=== PATIENT | male | born 1995 | race Caucasian/White ===

== ENCOUNTER 2016-10-28 03:48 | Emergency (ER) | payer BC ==
--- NOTE | ~2016-10-28 | ER ---
PATIENT'S NAME: DO TEIXEIRA [facility] AGE: 21 Y [address] ROOM: [place] [address] LOCATION: ED ADMIT DATE: 10/28/2016 ER/Outpatient Report DISCHARGE DATE: 10/28/2016 FAMILY PHYSICIAN: Physician, Unknown ATTENDING PHYSICIAN: Hung Arboleda CHIEF COMPLAINT: Suicidal ideation and right hand pain. HISTORY OF PRESENT ILLNESS: The patient broke up with his girlfriend vandana pace. He was suicidal. Somehow, the police became involved. They found that he had punched a brick wall, had swelling in his hand, but he needs to go to senior living for some preexisting warrants as I understand it. He needs clearance of his hand before admission to senior living. They facilitate all his other evaluations at that time. The patient does state that he wants to and he has had some alcohol this evening. He denies any other acute issues at this time. PAST MEDICAL HISTORY: Documented on the record and reviewed by me. SOCIAL HISTORY: Documented on the record and reviewed by me. MEDICATIONS: Documented on the record and reviewed by me. ALLERGIES: DOCUMENTED ON THE RECORD AND REVIEWED BY ME. REVIEW OF SYSTEMS: All systems reviewed and negative except as noted in the HPI. PHYSICAL EXAMINATION: VITAL SIGNS: Blood pressure is 147/96, pulse 104, respiratory rate is 20, temperature 99, SpO2 is 95% on room air. GENERAL: Age-appropriate male, sitting upright on the exam table, emotionally upset, but no apparent pain or distress. NEUROLOGIC: Awake and alert. GCS appears to be 15. No focal deficits. No asymmetry on exam. HEENT: Normocephalic, atraumatic. Eyes are PERRL. Oropharynx is clear. NECK: Supple. Trachea is midline. CHEST: Heart is regular. Tachycardia. No murmurs. LUNGS: Clear to auscultation bilateral. No rhonchi, wheezes, or rales. ABDOMEN: Soft, nontender, and nondistended. No rebound or guarding. PATIENT'S NAME: DO TEIXEIRA [facility] AGE: 21 Y [address] ROOM: [place] [address] LOCATION: [facility] ADMIT DATE: 10/28/2016 ER/Outpatient Report DISCHARGE DATE: 10/28/2016 FAMILY PHYSICIAN: Physician, Unknown ATTENDING PHYSICIAN: Hung Arboleda BACK: Normal to inspection and palpation. EXTREMITIES: Notable for some swelling and tenderness at the right knuckles. The patient is able to make a 5/5 barrel handler strength. Extension is appropriate. Able to give thumbs up, cross fingers, and otherwise no tenderness to palpation at the wrist. Just swelling along the MCPs on digits 3, 4, and 5 most prominently. No pain with range of motion or palpation of the wrist or elbow. SKIN: Appears to be intact otherwise. LABORATORY DATA AND X-RAYS: Plain films of the right hand do not reveal any fractures per my review. Radiology review is pending. IMPRESSION: 1. Contusions of the right hand. 2. Suicidal ideation. 3. Alcohol intoxication. ED COURSE: The patient was seen and evaluated as above. He was brought in under the care of police custody. He will be taken to senior living. No fractures at this time. Recommend Tylenol and ice as needed. The patient will be cleared per protocol for admission to psychiatric unit pending clearing of legal matters. All questions were answered and the patient was discharged back to the custody of police to senior living. MD KECIA YBARRA/pal /[id number] d: 10/28/1616 t: 10/31/16 1243, OUTPATIENT REPORT
== END 2016-10-28 04:16 | disposition disaster alternative care site (69) ==
LOC: GMED 03:48
DX: S60.221A Contusion of right hand, initial encounter (principal); R45.851 Suicidal ideations; F10.129 Alcohol abuse with intoxication, unspecified; W22.01XA Walked into wall, initial encounter